=== PATIENT | female | born 1940 | race Caucasian/White ===

== ENCOUNTER 2017-04-02 09:50 | Inpatient (IN) | payer OTHER ==
[2017-04-02] MEDS ORDERED: SOLU-Medrol 125 MG VIAL ONE (10:13)
[2017-04-02] MEDS ORDERED: SOLU-Medrol 125 MG VIAL IVP ONE (10:15)
[2017-04-02] MEDS ORDERED: NS 1000 ML 1,000 ML IV ONE (10:15)
--- NOTE | 2017-04-02 10:21 | DR.GENAD ---
HPI - PCP Primary Care Physician: catrachita - Complaint/Symptoms Chief Complaint Doctors Comments: Family members brought patient to the ED for evaluation secondry to dyspnea. Son reports that when patient came from the [place] she could barely walk and was gasping for air. He states that she usually walks this distance without problems. There was no history of fever. She has lung cancer and is followed by Dr Novoa and cancer specialist in [place]. She is a full code. Chief Complaint:: "has been short of breath for several days now pt has stage three lung cancer and copd" - Source History Provided: Patient, Family Member - Mode of Arrival Mode of Arrival: Wheelchair - Timing Onset of Chief Complaint: 03/25/17 PMH - PMH Past Medical History: Yes Past Medical History: Arthritis, COPD Past Medical History Comment: lung cancer Past Surgical History: Yes Surgical History: Cholecystectomy - Family History History of Family Medical Conditions: Yes Family Medical History: Cancer - Social History Does patient currently use any type of tobacco product: No Have you used tobacco products in the last 12 months: No Type of Tobacco Use: None Does any household member use tobacco: No Alcohol Use: None Do you use any recreational Drugs:: No Lives With: Family Lives Where: Home - infectious screening In the last 2 months have you had wt loss of >10#?: NO Have you had fever, night sweats or hemotysis?: No Have you traveled outside the country in the last 6 months?: No Isolation: Standard ROS - Review of Systems Constitutional: No Symptoms Reported Eyes: No Symptoms Reported ENTM: No Symptoms Reported Respiratoy: Short of Breath Cardiovascular: No Symptoms Reported Gastrointestinal/Abdominal: No Symptoms Reported Genitourinary: No Symptoms Reported Neurological: Weakness Musculoskeletal: Other (generalized pain) Integumentary: No Symptoms Reported Hematologic/Lymphatic: No Symptoms Reported Endocrine: Failure to Thrive Psychiatric: No Symptoms Reported All Other Systems: Reviewed and Negative PE - Vital Signs Vitals: Temperature 98.2 F Pulse Rate 148 Respiratory Rate 18 Blood Pressure [Right Arm] 93/50 Blood Pressure [Left Arm] 128/63 Blood Pressure 131/60 O2 Sat by Pulse Oximetry 72 - General Limitations: No Limitations General Appearance: Lethargic - Head Head Exam: Normal Inspection, Atraumatic - Eyes Eye exam: Normal Appearance, PERRL, EOMI - ENT ENT Exam: Normal Exam External Ear Exam: Normal External Inspection TM/Canal Exam: Bilateral Normal Nose Exam: Normal Nose Exam Mouth Exam: Normal Inspection Throat Exam: Normal Inspection - Neck Neck Exam: Normal Inspection, Full ROM - Chest Chest Inspection: Normal Inspection - Respiratory Respiratory Exam: Respiratory Distress Respiratory Exam: Bilateral Clear to Auscultation, Bilateral Decreased Breath Sounds - Cardiovascular Cardiovascular Exam: Regular Rate - Abdominal Exam Abdominal Exam: Normal Inspection Abdominal Tenderness: negative: RUQ, RLQ, LUQ, LLQ, Epigastrium, Suprapubic, Diffuse, Mild, Moderate, Severe, Other - Extremities Extremities Exam: Normal Inspection - Back Back Exam: Normal Inspection - Neurologic Neurological Exam: Alert, Oriented X3, CN II-XII Intact - Psychiatric Psychiatric Exam: Normal Affect - Skin Skin Exam: Warm, Dry, Intact Course - Treatment Treatment: Case was discussed with compliance aide who stated that patient would not be a candidate for stents. The interventional cupola melter stated that patient needed to be intubated prior to acceptance and would probable not come off ventilotor. He would accept if on ventilator. This was discussed with son and he stated that she had said to him that she did not want to be intubated. I discussed with son the possibility of Hospice and he needed to discussed the idea with his brother. The son statedf that is is single and does not have to time to care for her although he does have a 17 year old daughter but she would not have the time. ROR - Labs Reviewed Result Diagrams: 04/02/17 10:20 04/02/17 10:20 Laboratory: WBC 27.7 X10^3/uL (3.6-10.0) H* 04/02/17 10:20 RBC 3.64 X10^6/uL (3.5-5.4) 04/02/17 10:20 Hgb 9.7 g/dL (12.0-16.0) L 04/02/17 10:20 Hct 31.0 % (36.0-47.0) L 04/02/17 10:20 MCV 85.0 fL (80.0-100.0) 04/02/17 10:20 MCH 26.6 pg (27.0-34.0) L 04/02/17 10:20 MCHC 31.3 g/dL (33.0-35.0) L 04/02/17 10:20 RDW 21.8 % (11.6-16.5) H 04/02/17 10:20 Plt Count 574 X10^3/uL (150.0-450.0) H 04/02/17 10:20 Plt Count Comment Increased (ADEQUATE) A 04/02/17 10:20 MPV 7.7 fL (7.4-11.0) 04/02/17 10:20 Neut % 84.6 % (42.0-75.0) H 04/02/17 10:20 Lymph % 6.0 % (21.0-51.0) L 04/02/17 10:20 [place]yer % 8.8 % (0.0-13.0) 04/02/17 10:20 Eos % 0.1 % (0.9-2.9) L 04/02/17 10:20 Baso % 0.5 % (0.2-1.0) 04/02/17 10:20 Neut # 23.5 x10^3/uL (2.2-4.8) H 04/02/17 10:20 Lymph # 1.7 X10^3/uL (1.3-2.9) 04/02/17 10:20 [place] # 2.4 x10^3/uL (0.3-0.8) H 04/02/17 10:20 Eos # 0.0 x10^3/uL (0.0-0.2) 04/02/17 10:20 Baso # 0.1 X10^3/uL (0.0-0.1) 04/02/17 10:20 Absolute Nucleated RBC 0.0 /100WBC 04/02/17 10:20 Total Counted 100 04/02/17 10:20 Neutrophils % (Manual) 84 % (39-76) H 04/02/17 10:20 Band Neutrophils % 6 % (0-10) 04/02/17 10:20 Lymphocytes % (Manual) 7 % (13-43) L 04/02/17 10:20 Monocytes % (Manual) 2 % (4-9) L 04/02/17 10:20 Eosinophils % (Manual) 1 % (0-6) 04/02/17 10:20 Smudge Cells Noted 04/02/17 10:20 Plt Morphology Comment Normal (NORMAL) 04/02/17 10:20 RBC Morphology Abnormal (NORMAL) A 04/02/17 10:20 Anisocytosis 1+ A 04/02/17 10:20 Sample Site Lba 04/02/17 11:50 ABG pH 7.410 (7.35-7.45) 04/02/17 11:50 ABG pCO2 39.0 mmHg (35.0-45.0) 04/02/17 11:50 ABG pO2 59.0 mmHg (80.0-100.0) L 04/02/17 11:50 ABG HCO3 24.7 mmol/L (22-26) 04/02/17 11:50 ABG O2 Saturation 90.0 % (90-100) 04/02/17 11:50 ABG Base Excess 0.1 mmol/L (-2.0-2.0) 04/02/17 11:50 [place]ón Test Na 04/02/17 11:50 A-a Gradient 605.0 mmHg 04/02/17 11:50 FiO2 100.000 04/02/17 11:50 Blood Gas Comments Allyson well cs 04/02/17 11:50 Sodium 135 mmol/L (136-145) L 04/02/17 10:20 Corrected Sodium 136 mmol/L (136-145) 04/02/17 10:20 Potassium 4.2 mmol/L (3.5-5.1) 04/02/17 10:20 Chloride 97 mmol/L (98-107) L 04/02/17 10:20 Carbon Dioxide 21.9 mmol/L (21-32) 04/02/17 10:20 BUN 9 mg/dL (7-18) 04/02/17 10:20 Creatinine 0.78 mg/dL (0.55-1.02) 04/02/17 10:20 Est GFR (MDRD) Af Amer > 60 (>60) 04/02/17 10:20 Est GFR (MDRD) Non-Af > 60 (>60) 04/02/17 10:20 Glucose 150 mg/dL (65-99) H 04/02/17 10:20 Calcium 8.8 mg/dL (8.5-10.1) 04/02/17 10:20 Corrected Calcium 10.6 mg/dL (8.5-10.1) H 04/02/17 10:20 Total Bilirubin 0.40 mg/dL (0.2-1.0) 04/02/17 10:20 AST 23 Units/L (15-37) 04/02/17 10:20 ALT 7 Units/L (12-78) L 04/02/17 10:20 Alkaline Phosphatase 153 Units/L (46-116) H 04/02/17 10:20 Creatine Kinase 43 Units/L (26-192) 04/02/17 10:20 CK-MB (CK-2) 2.7 ng/mL (0-4.0) 04/02/17 10:20 CK/CKMB % Calc 6.3 % (<4) 04/02/17 10:20 Troponin I 1.35 ng/mL (0-1.5) 04/02/17 10:20 Total Protein 7.1 g/dL (6.4-8.2) 04/02/17 10:20 Albumin 1.7 g/dL (3.4-5.0) L 04/02/17 10:20 Globulin 5.4 g/dL (2.5-4.5) H 04/02/17 10:20 Albumin/Globulin Ratio 0.3 Ratio (1.1-2.1) L 04/02/17 10:20 Specimen Type Catherized urine 04/02/17 10:36 Urine Color Yellow (YELLOW) 04/02/17 10:36 Urine Appearance Clear (CLEAR) 04/02/17 10:36 Urine pH 7.0 (5.0 - 8.0) 04/02/17 10:36 Ur Specific [place] 1.010 (1.000-1.030) 04/02/17 10:36 Urine Protein 2+ (NEGATIVE) 04/02/17 10:36 Urine Glucose (UA) Negative (NEGATIVE) 04/02/17 10:36 Urine Ketones Negative (NEGATIVE) 04/02/17 10:36 Urine Occult Blood 2+ (NEGATIVE) 04/02/17 10:36 Urine Nitrite Negative (NEGATIVE) 04/02/17 10:36 Urine Bilirubin Negative (NEGATIVE) 04/02/17 10:36 Urine Urobilinogen 1+ (NORMAL) 04/02/17 10:36 Ur Leukocyte Esterase 1+ (NEGATIVE) 04/02/17 10:36 Urine RBC 0-3 /HPF (NEGATIVE) 04/02/17 10:36 Urine WBC 0-3 /HPF (NEGATIVE) 04/02/17 10:36 Ur Squamous Epith Cells Few /HPF (NEGATIVE) 04/02/17 10:36 Urine Bacteria Trace /HPF (NEGATIVE) 04/02/17 10:36 Ur Culture Indicated? No/not indicated 04/02/17 10:36 - XRAY XRAY Interpreted by: Self (Lung: opacification of lung lung) - Diagnosis Discharge Problem: Acute respiratory distress Lung malignancy Qualifiers: Laterality: left Lung location: overlapping sites Qualified Code(s): C34.82 - Malignant neoplasm of overlapping sites of left bronchus and lung - Discharge Plan Condition: Stable - Follow ups/Referrals Follow ups/Referrals: Ian Novoa [Primary Care Provider] - 3 days - Instructions
[2017-04-02 10:28] LABS: BASOPHILS # (AUTO) 0.1 X10^3/uL (0.0-0.1); BASOPHILS % (AUTO) 0.5 % (0.2-1.0); EOSINOPHILS % (AUTO) 0.1 % (0.9-2.9); HEMOGLOBIN 9.7 g/dL (12.0-16.0); LYMPHOCYTES # (AUTO) 1.7 X10^3/uL (1.3-2.9); MEAN CORPUSCULAR HEMOGLOBIN 26.6 pg (27.0-34.0); MEAN CORPUSCULAR HGB CONC 31.3 g/dL (33.0-35.0); MEAN PLATELET VOLUME 7.7 fL (7.4-11.0); MONOCYTES # (AUTO) 2.4 x10^3/uL (0.3-0.8); MONOCYTES % (AUTO) 8.8 % (0.0-13.0); NEUTROPHILS # (AUTO) 23.5 x10^3/uL (2.2-4.8); NEUTROPHILS % (AUTO) 84.6 % (42.0-75.0); PLATELET COUNT 574 X10^3/uL (150.0-450.0); RED BLOOD COUNT 3.64 X10^6/uL (3.5-5.4); RED CELL DISTRIBUTION WIDTH 21.8 % (11.6-16.5)
[2017-04-02 10:30] LABS: ABG BASE EXCESS -2.2 mmol/L (-2.0-2.0); ABG HCO3 23.2 mmol/L (22-26)
[2017-04-02] MEDS ORDERED: DUONEB 0.5 MG/3 MG NEB SCH (10:30)
[2017-04-02 10:31] LABS: ABG ALLEN TEST POS
[2017-04-02 10:34] LABS: WHITE BLOOD COUNT 27.7 X10^3/uL (3.6-10.0)
[2017-04-02] MEDS ORDERED: PROVENTIL NEB TX 0.083% 2.5MG/ 3ML ONE (10:34)
[2017-04-02] MEDS ORDERED: Atrovent NEB TX 0.02% ONE (10:34)
[2017-04-02] MEDS ORDERED: MORPHINE SULFATE INJ 4 MG IVP ONE (10:43)
[2017-04-02] MEDS ORDERED: MORPHINE SULFATE INJ 4 MG ONE (10:45)
[2017-04-02 10:47] LABS: ANISOCYTOSIS 1+; BAND NEUTROPHILS % 6 % (0-10); PLATELET MORPHOLOGY COMMENT NORMAL (NORMAL)
[2017-04-02 10:48] LABS: BLOOD UREA NITROGEN 9 mg/dL (7-18); CALCIUM 8.8 mg/dL (8.5-10.1); CARBON DIOXIDE 21.9 mmol/L (21-32); CHLORIDE 97 mmol/L (98-107); COR NA(FOR HYPERGLY) 136 mmol/L (136-145); CREATININE 0.78 mg/dL (0.55-1.02); SMUDGE CELLS NOTED; SODIUM 135 mmol/L (136-145); TROPONIN I 1.35 ng/mL (0-1.5); eGFR BLACK RACES > 60 (>60); eGFR NON BLACK RACES > 60 (>60)
[2017-04-02] MEDS ORDERED: PROVENTIL NEB TX 0.083% 2.5MG/ 3ML NEB ONE (10:49)
[2017-04-02] MEDS ORDERED: Atrovent NEB TX 0.02% NEB ONE (10:49)
[2017-04-02 10:54] LABS: ALANINE AMINOTRANSFERASE 7 Units/L (12-78); ALBUMIN 1.7 g/dL (3.4-5.0); ALKALINE PHOSPHATASE 153 Units/L (46-116); ASPARTATE AMINO TRANSFERASE 23 Units/L (15-37); CKMB % 6.3 % (<4); COR CA(FOR HYPOALB) 10.6 mg/dL (8.5-10.1); CREATINE KINASE 43 Units/L (26-192); CREATINE KINASE MB 2.7 ng/mL (0-4.0); TOTAL PROTEIN 7.1 g/dL (6.4-8.2)
[2017-04-02 10:55] LABS: BILIRUBIN,URINE NEGATIVE (NEGATIVE); BLOOD/HEMOGLOBIN,URINE 2+ (NEGATIVE); GLUCOSE, URINE NEGATIVE (NEGATIVE); KETONES,URINE NEGATIVE (NEGATIVE); LEUKOCYTE ESTERASE ,URINE 1+ (NEGATIVE); NITRITES,URINE NEGATIVE (NEGATIVE); PROTEIN,URINE 2+ (NEGATIVE); UROBILINOGEN,URINE 1+ (NORMAL)
[2017-04-02 11:03] LABS: APPEARANCE,URINE CLEAR (CLEAR); COLOR,URINE YELLOW (YELLOW)
[2017-04-02 11:04] LABS: BACTERIA,URINE TRACE /HPF (NEGATIVE); RBC,URINE 0-3 /HPF (NEGATIVE); SQUAMOUS EPITHELIAL CELL,UR FEW /HPF (NEGATIVE)
[2017-04-02 11:56] LABS: ABG BASE EXCESS 0.1 mmol/L (-2.0-2.0); ABG HCO3 24.7 mmol/L (22-26)
[2017-04-02] MEDS ORDERED: NS 1000 ML 1,000 ML IV SCH (16:00)
--- NOTE | 2017-04-02 16:10 | RAD ---
HISTORY: Respiratory distress Study: Chest AP portable Comparison: 07/02/2016 Findings: There is near complete opacification of the left walter thorax within associated shift of the heart med iastinal structures to the left. The left apex is well aerated. The left lower lobe is likely atelect atic. This is likely result of the patient's known lung mass. The right lung is free of acute infiltr ates although there is a focus of subsegmental atelectasis in the right upper lobe. IMPRESSION: Near complete opacification of the left walter thorax which is associated with a shift of the heart med iastinal structures to the left suggesting that the opacification is likely due to left lower lobe at electasis likely related to the patient's known large left lung and hilar mass. Subsegmental atelectasis right upper lobe Reported By:
[2017-04-02] MEDS ORDERED: MORPHINE SULFATE INJ 2 MG INJ IVP PRN (16:37)
[2017-04-02] MEDS ORDERED: MORPHINE SULFATE INJ 4 MG IVP PRN (18:28)
[2017-04-02] MEDS ORDERED: ATIVAN INJ 2 MG VIAL ONE (18:33)
[2017-04-02] MEDS: DURAGESIC 100 mcg/HR PATCH TD SCH (18:37)
[2017-04-02] MEDS: ATIVAN INJ 2 MG VIAL IVP PRN (18:38)
[2017-04-02] MEDS: Atrovent NEB TX 0.02% NEB SCH (18:56)
[2017-04-02] MEDS ORDERED: VALIUM INJ IVP PRN (19:45)
[2017-04-02] MEDS: ALBUMIN HUMAN 25%- 100ML 100 ML IV SCH (20:38)
[2017-04-02] MEDS: CHECK PATCH XX SCH (20:39)
[2017-04-02] MEDS: NS 1000 ML 1,000 ML IV SCH (20:39)
[2017-04-02] MEDS ORDERED: TIOTROPIUM BROMIDE MONOHYDRATE IN SCH (21:00)
[2017-04-03] MEDS: ATIVAN INJ 2 MG VIAL IVP PRN (00:35)
[2017-04-03] MEDS: Atrovent NEB TX 0.02% NEB SCH ×4 (01:17→16:18)
[2017-04-03] MEDS: NS 1000 ML 1,000 ML IV SCH ×4 (03:30→17:05)
[2017-04-03 05:54] LABS: ALANINE AMINOTRANSFERASE 9 Units/L (12-78); ALBUMIN 2.1 g/dL (3.4-5.0); ALKALINE PHOSPHATASE 116 Units/L (46-116); ASPARTATE AMINO TRANSFERASE 22 Units/L (15-37); BLOOD UREA NITROGEN 9 mg/dL (7-18); CALCIUM 8.2 mg/dL (8.5-10.1); CARBON DIOXIDE 23.2 mmol/L (21-32); CHLORIDE 104 mmol/L (98-107); COR CA(FOR HYPOALB) 9.7 mg/dL (8.5-10.1); COR NA(FOR HYPERGLY) 140 mmol/L (136-145); CREATININE 0.46 mg/dL (0.55-1.02); SODIUM 140 mmol/L (136-145); TOTAL PROTEIN 6.4 g/dL (6.4-8.2); eGFR BLACK RACES > 60 (>60); eGFR NON BLACK RACES > 60 (>60)
[2017-04-03 06:05] LABS: BASOPHILS # (AUTO) 0.1 X10^3/uL (0.0-0.1); BASOPHILS % (AUTO) 0.4 % (0.2-1.0); HEMATOCRIT 25.7 % (36.0-47.0); HEMOGLOBIN 8.4 g/dL (12.0-16.0); LYMPHOCYTES # (AUTO) 0.5 X10^3/uL (1.3-2.9); LYMPHOCYTES % (AUTO) 1.9 % (21.0-51.0); MEAN CORPUSCULAR HGB CONC 32.5 g/dL (33.0-35.0); MONOCYTES # (AUTO) 2.5 x10^3/uL (0.3-0.8); MONOCYTES % (AUTO) 9.7 % (0.0-13.0); NEUTROPHILS # (AUTO) 22.4 x10^3/uL (2.2-4.8); PLATELET COUNT 417 X10^3/uL (150.0-450.0); RED CELL DISTRIBUTION WIDTH 21.3 % (11.6-16.5)
[2017-04-03 06:17] LABS: WHITE BLOOD COUNT 25.5 X10^3/uL (3.6-10.0)
[2017-04-03 06:32] LABS: BAND NEUTROPHILS % 3 % (0-10); HYPOCHROMASIA 1+; PLATELET MORPHOLOGY COMMENT NORMAL (NORMAL)
[2017-04-03 06:33] LABS: SMUDGE CELLS NOTED
[2017-04-03 06:34] LABS: ANISOCYTOSIS 1+; OVALOCYTES NOTED
[2017-04-03] MEDS: ALBUMIN HUMAN 25%- 100ML 100 ML IV SCH (09:48)
[2017-04-03 09:52] VITALS: BMI 14.6
[2017-04-03] MEDS: CHECK PATCH XX SCH ×2 (10:08→20:16)
[2017-04-03] MEDS: MEGACE ORAL SUSP 400 MG/10 ML PO SCH (10:09)
[2017-04-04] MEDS: NS 1000 ML 1,000 ML IV SCH ×4 (00:38→21:23)
[2017-04-04] MEDS: Atrovent NEB TX 0.02% NEB SCH ×3 (00:44→16:58)
[2017-04-04 05:30] LABS: BASOPHILS % (AUTO) 0.1 % (0.2-1.0); HEMATOCRIT 23.9 % (36.0-47.0); HEMOGLOBIN 7.7 g/dL (12.0-16.0); LYMPHOCYTES # (AUTO) 0.6 X10^3/uL (1.3-2.9); LYMPHOCYTES % (AUTO) 2.7 % (21.0-51.0); MEAN CORPUSCULAR HEMOGLOBIN 27.1 pg (27.0-34.0); MEAN CORPUSCULAR HGB CONC 32.4 g/dL (33.0-35.0); MEAN CORPUSCULAR VOLUME 83.7 fL (80.0-100.0); MEAN PLATELET VOLUME 8.2 fL (7.4-11.0); MONOCYTES # (AUTO) 2.3 x10^3/uL (0.3-0.8); MONOCYTES % (AUTO) 10.5 % (0.0-13.0); NEUTROPHILS # (AUTO) 18.8 x10^3/uL (2.2-4.8); NEUTROPHILS % (AUTO) 86.7 % (42.0-75.0); PLATELET COUNT 353 X10^3/uL (150.0-450.0); RED BLOOD COUNT 2.86 X10^6/uL (3.5-5.4); RED CELL DISTRIBUTION WIDTH 21.3 % (11.6-16.5)
[2017-04-04 05:37] LABS: ALANINE AMINOTRANSFERASE 8 Units/L (12-78); ALBUMIN 2.1 g/dL (3.4-5.0); ALKALINE PHOSPHATASE 92 Units/L (46-116); ASPARTATE AMINO TRANSFERASE 20 Units/L (15-37); BLOOD UREA NITROGEN 6 mg/dL (7-18); CALCIUM 7.9 mg/dL (8.5-10.1); CARBON DIOXIDE 27.5 mmol/L (21-32); CHLORIDE 106 mmol/L (98-107); COR CA(FOR HYPOALB) 9.4 mg/dL (8.5-10.1); CREATININE 0.46 mg/dL (0.55-1.02); SODIUM 142 mmol/L (136-145); TOTAL PROTEIN 5.8 g/dL (6.4-8.2); eGFR BLACK RACES > 60 (>60); eGFR NON BLACK RACES > 60 (>60)
[2017-04-04 05:39] LABS: WHITE BLOOD COUNT 21.7 X10^3/uL (3.6-10.0)
[2017-04-04 05:43] LABS: ANISOCYTOSIS 1+; HYPOCHROMASIA 1+; OVALOCYTES NOTED; PLATELET MORPHOLOGY COMMENT NORMAL (NORMAL)
[2017-04-04] MEDS ORDERED: K-DUR TAB 20 MEQ PO PRN (05:43)
[2017-04-04] MEDS ORDERED: POTASSIUM CHLORIDE LIQ 20 MEQ UDC PO PRN (05:43)
[2017-04-04] MEDS ORDERED: K-LYTE EFFERVESCENT PO PRN (05:43)
[2017-04-04] MEDS ORDERED: MAGNESIUM SULFATE 1 GM/100 mL PREMIX 1 GM/100 ML BAG IV ONE (06:12)
[2017-04-04] MEDS: ATIVAN INJ 2 MG VIAL IVP PRN ×2 (06:13→21:28)
[2017-04-04] MEDS: K-RIDER 10 MEQ/NS 100 ML 10 MEQ/100 ML BAG IV PRN ×3 (06:16→08:23)
[2017-04-04] MEDS: CHECK PATCH XX SCH ×2 (08:01→21:28)
[2017-04-04] MEDS ORDERED: PHARMACY CONSULT - TPN XX SCH (10:00)
--- NOTE | 2017-04-04 10:29 | DR.H&P ---
H&P - History & Physical for Day of: H&P Date: 04/02/17 - Chief Complaint Chief Complaint: SHORTNESS OF BREATH - Allergies Allergies/Adverse Reactions: Allergies Allergy/AdvReac Type Severity Reaction Status Date / Time codeine Allergy Verified 04/02/17 10:36 - History of Present Illness History of Present Illness: Ms. Eisenberg is a 76 year old patient of ours who presented to the emergency room via personal vehicle with complaints of shortness of breath that has progressively gotten worse over the past several days. Patients son reported that patient has had weakness, decreased appetite , and difficulty walking. He also reports that patient has been gasping for air. Family reports that patient has a current history of lung cancer for which she underwent chemo and radiation in February. Patients son reported that she had a repeat PET scan a week ago. On arrival to the emergency room patient noted to be lethargic with an oxygen saturation of 72% on nasal cannula. Family reports that patient wears oxygen at home. On examination, lungs were noted with wheezing bilaterally to auscultation. Lungs sounds are diminished. Respirations are labored. Abdomen is flat, soft, and non-tender with normal bowel sounds noted in all quadrants. Vital signs on arrival were 98.2, 148, 18, 72% 2L NC, 131/60. A CBC, CMP, urinalysis, and ABG were obtained. Abnormal lab values include the following: WBC 27.7, Hgb 9.7, Hct 31.0, MCH 26.6, MCHC 31.3, RDW 21.8, Plt Count 574, Sodium 135, Chloride 97, Glucose 150, Corrected Calcium 10.6, ALT 7, Alk Phos 153, Albumin 1.7, Globulin 5.4, A/G Ratio 0.3. ABG reported: pO2 42.0, O2 Sat 75.0, Base Excess -2.2. EKG reported sinus thachycardia with HR 153. Chest xray reported: Near complete opacification of the left walter thorax which is associated with a shift of the heart mediastinal structures to the left suggesting that the opacification is likely due to left lower lobe atelectasis likely related to the patients known large left lung and hilar mass. Sub-segmental atelectasis right upper lobe. Patient placed on bi-pap at 14/7. spoke with a edge sawyer at [facility] in [place] regarding possible transfer. Grade Setter reports that patient would not be a candidate for a heart cath. He would accept patient, but patient would need to be intubated prior to transfer. Patient refused intubation. discussed the possibility of hospice with the family. Patients son stated that he would need to discuss with his brother. We admitted patient to the hospital for respiratory distress. We planned to follow up with AM labs and continue to monitor patient. - Past Medical History Past Medical History: Arthritis, COPD Additional Medical History: Vision deficit with corrective lenses, Osteoporosis , Back Pain, Blood Transfusion in 1961 - Past Surgical History Surgical History: Cholecystectomy - Family History Family Medical History: Cancer - Social History Does patient currently use any type of tobacco product: No Have you used tobacco products in the last 12 months: No Type of Tobacco Use: Cigarettes How many years tobacco product used: 50 Does any household member use tobacco: No Alcohol Use: None Drug Use: Prescription Drugs - Medications Home Medications: Megestrol Acetate 400 mg PO DAILY 04/02/17 [History Confirmed 04/02/17] - Review of Systems Constitutional: See HPI, Weakness Eyes: No Symptoms Reported ENT: No Symptoms Reported Respiratory: See HPI, Shortness of Breath, SOB with Excertion, Wheezing Cardiovascular: Chest Pain Gastrointestinal: No Symptoms Reported Genitourinary: No Symptoms Reported Musculoskeletal: No Symptoms Reported Skin: No Symptoms Reported Neurological: Weakness - Physical Exam Vital Signs: Temperature 98.3 F Pulse Rate [Right Brachial] 62 Pulse Rate [Left Brachial] 108 Pulse Rate 113 Respiratory Rate 20 Blood Pressure [Right Arm] 146/64 Blood Pressure [Left Arm] 118/63 Blood Pressure 131/60 O2 Sat by Pulse Oximetry 96 Oriented: Normal Eyes: Normal Ear: Normal Nose: Normal Throat: Normal Respiratory: Diminished Throughout, Wheezes Throughout Cardiovascular: Tachycardia : Normal Auscultation: Bowel Sounds: Normal Palpation: Normal Tenderness: Normal Skin: Bruising (SCATTERED ) Musculoskeletal: Instability Psychiatric: Normal Mood Description: Calm Affect: Normal Speech Pattern: Appropriate - Assessment/Plan (1) Acute respiratory distress Status: Acute Plan: BIPAP, ATROVENT NEB TX, ATIVAN 0.5MG IV Q3-4H PRN, MORPHINE 4MG IV Q3H PRN , CONTINUE TO MONITOR (2) Bronchogenic cancer of left lung Status: Acute Plan: FENTANYL 100MCG PATCH FOR PAIN, CONTINUE TO MONITOR
[2017-04-04] MEDS ORDERED: DRUG FILTER EXTENSION SET ONE (12:13)
[2017-04-04] MEDS: FORTAZ or TAZICEF INJ 1 GM in NS 50 ML IV + SPIKE MINIBAG* 50 ML IV SCH ×3 (12:30→21:23)
[2017-04-04] MEDS: TRACE ELEMENTS IV SCH ×5 (12:30)
[2017-04-04] MEDS: LEVAQUIN PREMIX IV 750 MG 750 MG/150 ML BAG IV SCH (12:30)
[2017-04-04] MEDS: CLINIMIX IV SCH ×5 (12:30)
[2017-04-04] MEDS: SOLU-Medrol 40 MG VIAL IVP SCH ×3 (12:30→21:23)
[2017-04-04] MEDS: TPN ELECTROLYTES IV SCH ×5 (12:30)
[2017-04-04] MEDS: ALBUMIN HUMAN 25%- 100ML 100 ML IV SCH (12:30)
[2017-04-04] MEDS: [UNRECOGNIZED DRUG - OTHER] IV SCH ×5 (12:30)
[2017-04-04] MEDS: MEGACE ORAL SUSP 400 MG/10 ML PO SCH ×2 (14:23→15:00)
--- NOTE | 2017-04-04 16:04 | PCM.PROG ---
Progress Note - Progress Note for Day of Date: 04/03/17 - Subjective Subjective: WAS ADMITTED FOR ACUTE RESPIRATORY DISTRESS. TODAY, SHE IS LYING IN BED WITH EYES CLOSED. PATIENT DOES NOT AWAKEN OR RESPOND TO VERBAL STIMULI. PATIENT'S FAMILY STATES THAT SHE HAS NOT RESPONDED TO THEM SINCE LAST NIGHT. ON EXAMINATION, LUNGS ARE NOTED WITH WHEEZING BILATERALLY TO AUSCULTATION. ABDOMEN IS FLAT, SOFT, AND NON TENDER. NORMAL BOWEL SOUNDS ARE NOTED IN ALL QUADRANTS. PATIENT IS ON A VENTI MASK AT THIS TIME AT 50%. FAMILY REPORTS THAT SHE WAS UNABLE TO TOLERATE THE BIPAP THROUGHOUT THE NIGHT. HER VITAL SIGNS THIS MORNING ARE 97.6-108-24-96%-108/63. A CBC AND CMP WERE OBTAINED. ABNORMAL LAB VALUES INCLUDE THE FOLLOWING: WBC 25.5, RBC 3.10, HGB 8.4 , HCT 25.7, CREATININE 0.46, GLUCOSE 111, CALCIUM 8.2, ALT 9, ALBUMIN 2.1. WE DISCUSSED WITH FAMILY THEIR WISHES FOR PATIENT'S COURSE OF TREATMENT. FAMILY REPORTS THAT THEY CONTINUE TO DISCUSS HOSPICE BEING AN OPTION. THEY DO NOT WISH TO BE AGGRESSIVE WITH TREATMENT AT THIS TIME. TODAY, WE WILL ADD DURAGESIC 25MCG PATCH. OTHERWISE, WE WILL CONTINUE WITH CURRENT PLAN OF CARE. WE WILL FOLLOW UP WITH AM LABS AND CONTINUE TO MONITOR PATIENT. - Past Medical Family Social History Past Med/Fam/Surg Hx: No changes since H&P Allergies: Allergies codeine Allergy (Verified 04/02/17 10:36) - Review of Systems ROS: No change since H&P - Vital Signs and I&O's Vital Signs: Temperature 98.3 F Pulse Rate [Right Brachial] 62 Pulse Rate [Left Brachial] 108 Pulse Rate 113 Respiratory Rate 20 Blood Pressure [Right Arm] 146/64 Blood Pressure [Left Arm] 118/63 Blood Pressure 131/60 O2 Sat by Pulse Oximetry 96 Intake and Output: Intake & Output 04/02/17 04/03/17 04/04/17 04/05/17 11:59 11:59 11:59 11:59 Intake Total 1347 2770 Output Total 100 1050 Balance 1247 1720 - Physical Exam Oriented: Unable to test Eyes: Normal Ear: Normal Nose: Normal Throat: Normal Respiratory: Generalized, Wheezes Cardiovascular: Tachycardia : Normal Auscultation: Bowel Sounds: Normal Palpation: Normal Tenderness: Normal Skin: Bruising (SCATTERED ) Musculoskeletal: Instability Psychiatric: Normal Mood Description: Calm Affect: Normal Speech Pattern: Appropriate - Laboratory and Diagnostics Result Diagrams: 04/04/17 03:30 04/04/17 03:30 Labs: Laboratory WBC 21.7 X10^3/uL (3.6-10.0) H* 04/04/17 03:30 RBC 2.86 X10^6/uL (3.5-5.4) L 04/04/17 03:30 Hgb 7.7 g/dL (12.0-16.0) L 04/04/17 03:30 Hct 23.9 % (36.0-47.0) L 04/04/17 03:30 MCV 83.7 fL (80.0-100.0) 04/04/17 03:30 MCH 27.1 pg (27.0-34.0) 04/04/17 03:30 MCHC 32.4 g/dL (33.0-35.0) L 04/04/17 03:30 RDW 21.3 % (11.6-16.5) H 04/04/17 03:30 Plt Count 353 X10^3/uL (150.0-450.0) 04/04/17 03:30 Plt Count Comment Adequate (ADEQUATE) 04/04/17 03:30 MPV 8.2 fL (7.4-11.0) 04/04/17 03:30 Neut % 86.7 % (42.0-75.0) H 04/04/17 03:30 Lymph % 2.7 % (21.0-51.0) L 04/04/17 03:30 [place] % 10.5 % (0.0-13.0) 04/04/17 03:30 Eos % 0.0 % (0.9-2.9) L 04/04/17 03:30 Baso % 0.1 % (0.2-1.0) L 04/04/17 03:30 Neut # 18.8 x10^3/uL (2.2-4.8) H 04/04/17 03:30 Lymph # 0.6 X10^3/uL (1.3-2.9) L 04/04/17 03:30 [place] # 2.3 x10^3/uL (0.3-0.8) H 04/04/17 03:30 Eos # 0.0 x10^3/uL (0.0-0.2) 04/04/17 03:30 Baso # 0.0 X10^3/uL (0.0-0.1) 04/04/17 03:30 Absolute Nucleated RBC 0.0 /100WBC 04/04/17 03:30 Total Counted 100 04/03/17 05:30 Neutrophils % (Manual) 90 % (39-76) H 04/03/17 05:30 Band Neutrophils % 3 % (0-10) 04/03/17 05:30 Lymphocytes % (Manual) 1 % (13-43) L 04/03/17 05:30 Monocytes % (Manual) 6 % (4-9) 04/03/17 05:30 Eosinophils % (Manual) 1 % (0-6) 04/02/17 10:20 Smudge Cells Noted 04/03/17 05:30 Plt Morphology Comment Normal (NORMAL) 04/04/17 03:30 RBC Morphology Abnormal (NORMAL) A 04/04/17 03:30 Hypochromasia 1+ A 04/04/17 03:30 Anisocytosis 1+ A 04/04/17 03:30 Ovalocytes Noted 04/04/17 03:30 Sample Site Lba 04/02/17 11:50 ABG pH 7.410 (7.35-7.45) 04/02/17 11:50 ABG pCO2 39.0 mmHg (35.0-45.0) 04/02/17 11:50 ABG pO2 59.0 mmHg (80.0-100.0) L 04/02/17 11:50 ABG HCO3 24.7 mmol/L (22-26) 04/02/17 11:50 ABG O2 Saturation 90.0 % (90-100) 04/02/17 11:50 ABG Base Excess 0.1 mmol/L (-2.0-2.0) 04/02/17 11:50 [place] Test Na 04/02/17 11:50 A-a Gradient 605.0 mmHg 04/02/17 11:50 FiO2 100.000 04/02/17 11:50 Blood Gas Comments Allyson well cs 04/02/17 11:50 Sodium 142 mmol/L (136-145) 04/04/17 03:30 Corrected Sodium TNP 04/04/17 03:30 Potassium 2.9 mmol/L (3.5-5.1) L* 04/04/17 03:30 Chloride 106 mmol/L (98-107) 04/04/17 03:30 Carbon Dioxide 27.5 mmol/L (21-32) 04/04/17 03:30 BUN 6 mg/dL (7-18) L 04/04/17 03:30 Creatinine 0.46 mg/dL (0.55-1.02) L 04/04/17 03:30 Est GFR (MDRD) Af Amer > 60 (>60) 04/04/17 03:30 Est GFR (MDRD) Non-Af > 60 (>60) 04/04/17 03:30 Glucose 93 mg/dL (65-99) 04/04/17 03:30 Calcium 7.9 mg/dL (8.5-10.1) L 04/04/17 03:30 Corrected Calcium 9.4 mg/dL (8.5-10.1) 04/04/17 03:30 Magnesium 1.6 mg/dL (1.7-2.9) L 04/04/17 03:30 Total Bilirubin 0.40 mg/dL (0.2-1.0) 04/04/17 03:30 AST 20 Units/L (15-37) 04/04/17 03:30 ALT 8 Units/L (12-78) L 04/04/17 03:30 Alkaline Phosphatase 92 Units/L (46-116) 04/04/17 03:30 Creatine Kinase 43 Units/L (26-192) 04/02/17 10:20 CK-MB (CK-2) 2.7 ng/mL (0-4.0) 04/02/17 10:20 CK/CKMB % Calc 6.3 % (<4) 04/02/17 10:20 Troponin I 1.35 ng/mL (0-1.5) 04/02/17 10:20 Total Protein 5.8 g/dL (6.4-8.2) L 04/04/17 03:30 Albumin 2.1 g/dL (3.4-5.0) L 04/04/17 03:30 Globulin 3.7 g/dL (2.5-4.5) 04/04/17 03:30 Albumin/Globulin Ratio 0.6 Ratio (1.1-2.1) L 04/04/17 03:30 Prealbumin 6.5 mg/dL (18-35.7) L 04/04/17 03:30 Specimen Type Catherized urine 04/02/17 10:36 Urine Color Yellow (YELLOW) 04/02/17 10:36 Urine Appearance Clear (CLEAR) 04/02/17 10:36 Urine pH 7.0 (5.0 - 8.0) 04/02/17 10:36 Ur Specific [place] 1.010 (1.000-1.030) 04/02/17 10:36 Urine Protein 2+ (NEGATIVE) 04/02/17 10:36 Urine Glucose (UA) Negative (NEGATIVE) 04/02/17 10:36 Urine Ketones Negative (NEGATIVE) 04/02/17 10:36 Urine Occult Blood 2+ (NEGATIVE) 04/02/17 10:36 Urine Nitrite Negative (NEGATIVE) 04/02/17 10:36 Urine Bilirubin Negative (NEGATIVE) 04/02/17 10:36 Urine Urobilinogen 1+ (NORMAL) 04/02/17 10:36 Ur Leukocyte Esterase 1+ (NEGATIVE) 04/02/17 10:36 Urine RBC 0-3 /HPF (NEGATIVE) 04/02/17 10:36 Urine WBC 0-3 /HPF (NEGATIVE) 04/02/17 10:36 Ur Squamous Epith Cells Few /HPF (NEGATIVE) 04/02/17 10:36 Urine Bacteria Trace /HPF (NEGATIVE) 04/02/17 10:36 Ur Culture Indicated? No/not indicated 04/02/17 10:36 - Plan (1) Acute respiratory distress Status: Acute Plan: BIPAP, ATROVENT NEB TX, ATIVAN 0.5MG IV Q3-4H PRN, MORPHINE 4MG IV Q3H PRN , CONTINUE TO MONITOR (2) Bronchogenic cancer of left lung Status: Chronic Plan: FENTANYL 125MCG PATCH FOR PAIN, CONTINUE TO MONITOR
[2017-04-05] MEDS: Atrovent NEB TX 0.02% NEB SCH ×4 (00:57→17:16)
[2017-04-05] MEDS: TRACE ELEMENTS IV SCH ×10 (01:56→14:02)
[2017-04-05] MEDS: CLINIMIX IV SCH ×10 (01:56→14:02)
[2017-04-05] MEDS: [UNRECOGNIZED DRUG - OTHER] IV SCH ×10 (01:56→14:02)
[2017-04-05] MEDS: TPN ELECTROLYTES IV SCH ×10 (01:56→14:02)
[2017-04-05] MEDS: FORTAZ or TAZICEF INJ 1 GM in NS 50 ML IV + SPIKE MINIBAG* 50 ML IV SCH ×3 (05:38→21:00)
[2017-04-05] MEDS: SOLU-Medrol 40 MG VIAL IVP SCH ×3 (05:39→21:00)
[2017-04-05 06:40] LABS: ALANINE AMINOTRANSFERASE 10 Units/L (12-78); ALBUMIN 2.6 g/dL (3.4-5.0); ALKALINE PHOSPHATASE 94 Units/L (46-116); ASPARTATE AMINO TRANSFERASE 19 Units/L (15-37); BLOOD UREA NITROGEN 8 mg/dL (7-18); CALCIUM 8.6 mg/dL (8.5-10.1); CHLORIDE 102 mmol/L (98-107); COR CA(FOR HYPOALB) 9.7 mg/dL (8.5-10.1); COR NA(FOR HYPERGLY) 141 mmol/L (136-145); CREATININE 0.44 mg/dL (0.55-1.02); SODIUM 139 mmol/L (136-145); TOTAL PROTEIN 6.4 g/dL (6.4-8.2); eGFR BLACK RACES > 60 (>60); eGFR NON BLACK RACES > 60 (>60)
[2017-04-05 06:44] LABS: BASOPHILS % (AUTO) 0.2 % (0.2-1.0); HEMOGLOBIN 8.1 g/dL (12.0-16.0); LYMPHOCYTES # (AUTO) 0.5 X10^3/uL (1.3-2.9); LYMPHOCYTES % (AUTO) 3.1 % (21.0-51.0); MEAN CORPUSCULAR HGB CONC 32.5 g/dL (33.0-35.0); MEAN CORPUSCULAR VOLUME 83.3 fL (80.0-100.0); MEAN PLATELET VOLUME 8.5 fL (7.4-11.0); MONOCYTES # (AUTO) 0.4 x10^3/uL (0.3-0.8); MONOCYTES % (AUTO) 2.7 % (0.0-13.0); NEUTROPHILS # (AUTO) 14.6 x10^3/uL (2.2-4.8); PLATELET COUNT 335 X10^3/uL (150.0-450.0); RED CELL DISTRIBUTION WIDTH 21.9 % (11.6-16.5); WHITE BLOOD COUNT 15.5 X10^3/uL (3.6-10.0)
[2017-04-05 07:15] LABS: ANISOCYTOSIS 1+; PLATELET MORPHOLOGY COMMENT NORMAL (NORMAL)
[2017-04-05] MEDS ORDERED: HumuLIN R SUBCUT PRN (08:18)
[2017-04-05] MEDS ORDERED: DEXTROSE 10% 1,000 ML IV PRN (08:18)
[2017-04-05] MEDS: ALBUMIN HUMAN 25%- 100ML 100 ML IV SCH (10:23)
[2017-04-05] MEDS: MEGACE ORAL SUSP 400 MG/10 ML PO SCH (10:26)
[2017-04-05] MEDS: LEVAQUIN PREMIX IV 750 MG 750 MG/150 ML BAG IV SCH (10:26)
[2017-04-05] MEDS: CHECK PATCH XX SCH ×2 (11:52→20:48)
[2017-04-05] MEDS: DURAGESIC 100 mcg/HR PATCH TD SCH (17:01)
[2017-04-05] MEDS: NS 1000 ML 1,000 ML IV SCH (17:09)
[2017-04-05] MEDS: ATIVAN INJ 2 MG VIAL IVP PRN ×2 (20:36→23:50)
[2017-04-06] MEDS: Atrovent NEB TX 0.02% NEB SCH ×3 (00:56→11:18)
[2017-04-06] MEDS: TRACE ELEMENTS IV SCH ×5 (03:57)
[2017-04-06] MEDS: NS 1000 ML 1,000 ML IV SCH (03:57)
[2017-04-06] MEDS: [UNRECOGNIZED DRUG - OTHER] IV SCH ×5 (03:57)
[2017-04-06] MEDS: TPN ELECTROLYTES IV SCH ×5 (03:57)
[2017-04-06] MEDS: CLINIMIX IV SCH ×5 (03:57)
[2017-04-06] MEDS: ATIVAN INJ 2 MG VIAL IVP PRN ×2 (04:36→14:45)
[2017-04-06] MEDS: FORTAZ or TAZICEF INJ 1 GM in NS 50 ML IV + SPIKE MINIBAG* 50 ML IV SCH ×2 (05:10→15:08)
[2017-04-06] MEDS: SOLU-Medrol 40 MG VIAL IVP SCH ×2 (05:11→15:08)
[2017-04-06 05:35] LABS: BASOPHILS % (AUTO) 0.2 % (0.2-1.0); EOSINOPHILS % (AUTO) 0.1 % (0.9-2.9); HEMATOCRIT 22.4 % (36.0-47.0); HEMOGLOBIN 7.3 g/dL (12.0-16.0); LYMPHOCYTES # (AUTO) 0.3 X10^3/uL (1.3-2.9); LYMPHOCYTES % (AUTO) 2.5 % (21.0-51.0); MEAN CORPUSCULAR HEMOGLOBIN 26.9 pg (27.0-34.0); MEAN CORPUSCULAR HGB CONC 32.4 g/dL (33.0-35.0); MEAN PLATELET VOLUME 8.4 fL (7.4-11.0); MONOCYTES # (AUTO) 0.6 x10^3/uL (0.3-0.8); MONOCYTES % (AUTO) 5.5 % (0.0-13.0); NEUTROPHILS # (AUTO) 10.8 x10^3/uL (2.2-4.8); NEUTROPHILS % (AUTO) 91.7 % (42.0-75.0); PLATELET COUNT 319 X10^3/uL (150.0-450.0); RED BLOOD COUNT 2.69 X10^6/uL (3.5-5.4); RED CELL DISTRIBUTION WIDTH 21.9 % (11.6-16.5); WHITE BLOOD COUNT 11.8 X10^3/uL (3.6-10.0)
[2017-04-06 05:51] LABS: ALANINE AMINOTRANSFERASE 13 Units/L (12-78); ALBUMIN 2.3 g/dL (3.4-5.0); ALKALINE PHOSPHATASE 82 Units/L (46-116); ASPARTATE AMINO TRANSFERASE 21 Units/L (15-37); BLOOD UREA NITROGEN 13 mg/dL (7-18); CALCIUM 8.5 mg/dL (8.5-10.1); CHLORIDE 103 mmol/L (98-107); COR CA(FOR HYPOALB) 9.9 mg/dL (8.5-10.1); COR NA(FOR HYPERGLY) 143 mmol/L (136-145); CREATININE 0.47 mg/dL (0.55-1.02); SODIUM 141 mmol/L (136-145); TOTAL PROTEIN 5.9 g/dL (6.4-8.2); eGFR BLACK RACES > 60 (>60); eGFR NON BLACK RACES > 60 (>60)
[2017-04-06 06:54] LABS: HYPOCHROMASIA 1+; PLATELET MORPHOLOGY COMMENT NORMAL (NORMAL)
[2017-04-06] MEDS: CHECK PATCH XX SCH (09:31)
[2017-04-06] MEDS: LEVAQUIN PREMIX IV 750 MG 750 MG/150 ML BAG IV SCH (09:31)
[2017-04-06] MEDS: ALBUMIN HUMAN 25%- 100ML 100 ML IV SCH (09:31)
[2017-04-06] MEDS: MEGACE ORAL SUSP 400 MG/10 ML PO SCH (09:58)
--- NOTE | 2017-04-06 10:49 | PCM.PROG ---
Progress Note - Progress Note for Day of Date: 04/04/17 - Subjective Subjective: WAS ADMITTED FOR ACUTE RESPIRATORY DISTRESS. TODAY, SHE IS ALERT AND ORIENTED, LYING IN BED WITH EYES OPEN ON MORNING ROUNDS. FAMILY REPORTS THAT PATIENT BECAME MORE ALERT YESTERDAY AFTERNOON AND BEGAN ASKING FOR FOOD AND DRINKS. PATIENT IS NOTED WITH COMPLAINTS OF SHORTNESS OF BREATH AND MID /LOWER BACK PAIN. ON EXAMINATION, LUNGS CONTINUE WITH WHEEZING AND RHONCHI BILATERALLY TO AUSCULTATION. ABDOMEN IS FLAT, SOFT, AND NON-TENDER WITH NORMAL BOWEL SOUNDS NOTED IN ALL QUADRANTS. SHE IS NOTED ON A VENTI-MASK THIS MORNING AT 50%. HER VITAL SIGNS THIS MORNING ARE 98.3-62-20-96%-146/64. A CBC, CMP, AND CHEST XRAY WAS OBTAINED THIS MORNING. ABNORMAL LAB RESULTS INCLUDE THE FOLLOWING : WBC 21.7, RBC 2.86, HGB 7.7, HCT 23.9, POTASSIUM 2.9, BUN 6, CREATININE 0.46, CALCIUM 7.9, ALT 8, TOTAL PROTEIN 5.8, ALBUMIN 2.1, MAGNESIUM 1.6. CHEST XRAY REPORTED FINDINGS MOST CONSISTENT WITH EXTENSIVE ATELECTASIS OF THE LEFT LUNG. STAFF REPORTS THAT PATIENTS TEMPERATURE WAS 100.4 AT SOME POINT THROUGHOUT THE NIGHT. FAMILY REPORTS THAT THEY HAVE DECIDED TO PLACE PATIENT UNDER THE CARE OF HOSPICE WHEN THEY ARE DISCHARGED HOME. THEY WISH TO BE PROACTIVE IN THE TREATMENT OF PNEUMONIA SINCE PATIENT HAS BECOME MORE ALERT. WE ARE IN AGREEMENT WITH THE WISHES OF THE FAMILY. TODAY, WE WILL START FORTAZ 1GM IV Q8H, LEVAQUIN 750MG IV DAILY, SOLU-MEDROL 80MG IV Q8H, ALBUMIN 25% DAILY, AND TPN. CASE MANAGEMENT WILL ARRANGE HOSPICE CARE FOR DISCHARGE. WE PLAN TO FOLLOW UP WITH AM LABS AND CONTINUE TO MONITOR PATINET. - Past Medical Family Social History Past Med/Fam/Surg Hx: No changes since H&P Allergies: Allergies codeine Allergy (Verified 04/02/17 10:36) - Review of Systems ROS: No change since H&P - Vital Signs and I&O's Vital Signs: Temperature 97.3 F Pulse Rate [Right Brachial] 104 Pulse Rate [Left Brachial] 134 Pulse Rate 92 Respiratory Rate 22 Blood Pressure [Right Arm] 141/80 Blood Pressure [Left Arm] 121/76 Blood Pressure 131/60 O2 Sat by Pulse Oximetry 100 Intake and Output: Intake & Output 04/03/17 04/04/17 04/05/17 04/06/17 11:59 11:59 11:59 11:59 Intake Total 1347 2770 940 465 Output Total 100 1050 1445 1175 Balance 1247 0052 -409 -277 - Physical Exam Oriented: Normal Eyes: Normal Ear: Normal Nose: Normal Throat: Normal Respiratory: Generalized, Wheezes, Rhonchi Cardiovascular: Tachycardia : Normal Auscultation: Bowel Sounds: Normal Palpation: Normal Tenderness: Normal Skin: Bruising (SCATTERED ) Musculoskeletal: Instability Psychiatric: Normal Mood Description: Calm Affect: Normal Speech Pattern: Clear, Appropriate - Laboratory and Diagnostics Result Diagrams: 04/06/17 03:30 04/06/17 03:30 Labs: Laboratory WBC 11.8 X10^3/uL (3.6-10.0) H 04/06/17 03:30 RBC 2.69 X10^6/uL (3.5-5.4) L 04/06/17 03:30 Hgb 7.3 g/dL (12.0-16.0) L 04/06/17 03:30 Hct 22.4 % (36.0-47.0) L 04/06/17 03:30 MCV 83.0 fL (80.0-100.0) 04/06/17 03:30 MCH 26.9 pg (27.0-34.0) L 04/06/17 03:30 MCHC 32.4 g/dL (33.0-35.0) L 04/06/17 03:30 RDW 21.9 % (11.6-16.5) H 04/06/17 03:30 Plt Count 319 X10^3/uL (150.0-450.0) 04/06/17 03:30 Plt Count Comment Adequate (ADEQUATE) 04/06/17 03:30 MPV 8.4 fL (7.4-11.0) 04/06/17 03:30 Neut % 91.7 % (42.0-75.0) H 04/06/17 03:30 Lymph % 2.5 % (21.0-51.0) L 04/06/17 03:30 [place] % 5.5 % (0.0-13.0) 04/06/17 03:30 Eos % 0.1 % (0.9-2.9) L 04/06/17 03:30 Baso % 0.2 % (0.2-1.0) 04/06/17 03:30 Neut # 10.8 x10^3/uL (2.2-4.8) H 04/06/17 03:30 Lymph # 0.3 X10^3/uL (1.3-2.9) L 04/06/17 03:30 [place] # 0.6 x10^3/uL (0.3-0.8) 04/06/17 03:30 Eos # 0.0 x10^3/uL (0.0-0.2) 04/06/17 03:30 Baso # 0.0 X10^3/uL (0.0-0.1) 04/06/17 03:30 Absolute Nucleated RBC 0.1 /100WBC 04/06/17 03:30 Total Counted 100 04/06/17 03:30 Neutrophils % (Manual) 89 % (39-76) H 04/06/17 03:30 Band Neutrophils % 3 % (0-10) 04/03/17 05:30 Lymphocytes % (Manual) 7 % (13-43) L 04/06/17 03:30 Monocytes % (Manual) 3 % (4-9) L 04/06/17 03:30 Eosinophils % (Manual) 1 % (0-6) 04/06/17 03:30 Smudge Cells Noted 04/03/17 05:30 Plt Morphology Comment Normal (NORMAL) 04/06/17 03:30 RBC Morphology Abnormal (NORMAL) A 04/06/17 03:30 Hypochromasia 1+ A 04/06/17 03:30 Anisocytosis 1+ A 04/05/17 05:15 Ovalocytes Noted 04/04/17 03:30 Sample Site Lba 04/02/17 11:50 ABG pH 7.410 (7.35-7.45) 04/02/17 11:50 ABG pCO2 39.0 mmHg (35.0-45.0) 04/02/17 11:50 ABG pO2 59.0 mmHg (80.0-100.0) L 04/02/17 11:50 ABG HCO3 24.7 mmol/L (22-26) 04/02/17 11:50 ABG O2 Saturation 90.0 % (90-100) 04/02/17 11:50 ABG Base Excess 0.1 mmol/L (-2.0-2.0) 04/02/17 11:50 [place] Test Na 04/02/17 11:50 A-a Gradient 605.0 mmHg 04/02/17 11:50 FiO2 100.000 04/02/17 11:50 Blood Gas Comments Allyson well cs 04/02/17 11:50 Sodium 141 mmol/L (136-145) 04/06/17 03:30 Corrected Sodium 143 mmol/L (136-145) 04/06/17 03:30 Potassium 3.8 mmol/L (3.5-5.1) 04/06/17 03:30 Chloride 103 mmol/L (98-107) 04/06/17 03:30 Carbon Dioxide 33.0 mmol/L (21-32) H 04/06/17 03:30 BUN 13 mg/dL (7-18) 04/06/17 03:30 Creatinine 0.47 mg/dL (0.55-1.02) L 04/06/17 03:30 Est GFR (MDRD) Af Amer > 60 (>60) 04/06/17 03:30 Est GFR (MDRD) Non-Af > 60 (>60) 04/06/17 03:30 Glucose 191 mg/dL (65-99) H 04/06/17 03:30 POC Glucose (mg/dL) 188 mg/dL (65-99) H 04/06/17 04:38 Calcium 8.5 mg/dL (8.5-10.1) 04/06/17 03:30 Corrected Calcium 9.9 mg/dL (8.5-10.1) 04/06/17 03:30 Magnesium 2.0 mg/dL (1.7-2.9) 04/05/17 08:25 Total Bilirubin 0.20 mg/dL (0.2-1.0) 04/06/17 03:30 AST 21 Units/L (15-37) 04/06/17 03:30 ALT 13 Units/L (12-78) 04/06/17 03:30 Alkaline Phosphatase 82 Units/L (46-116) 04/06/17 03:30 Creatine Kinase 43 Units/L (26-192) 04/02/17 10:20 CK-MB (CK-2) 2.7 ng/mL (0-4.0) 04/02/17 10:20 CK/CKMB % Calc 6.3 % (<4) 04/02/17 10:20 Troponin I 1.35 ng/mL (0-1.5) 04/02/17 10:20 Total Protein 5.9 g/dL (6.4-8.2) L 04/06/17 03:30 Albumin 2.3 g/dL (3.4-5.0) L 04/06/17 03:30 Globulin 3.6 g/dL (2.5-4.5) 04/06/17 03:30 Albumin/Globulin Ratio 0.6 Ratio (1.1-2.1) L 04/06/17 03:30 Prealbumin 6.5 mg/dL (18-35.7) L 04/04/17 03:30 Specimen Type Catherized urine 04/02/17 10:36 Urine Color Yellow (YELLOW) 04/02/17 10:36 Urine Appearance Clear (CLEAR) 04/02/17 10:36 Urine pH 7.0 (5.0 - 8.0) 04/02/17 10:36 Ur Specific [place] 1.010 (1.000-1.030) 04/02/17 10:36 Urine Protein 2+ (NEGATIVE) 04/02/17 10:36 Urine Glucose (UA) Negative (NEGATIVE) 04/02/17 10:36 Urine Ketones Negative (NEGATIVE) 04/02/17 10:36 Urine Occult Blood 2+ (NEGATIVE) 04/02/17 10:36 Urine Nitrite Negative (NEGATIVE) 04/02/17 10:36 Urine Bilirubin Negative (NEGATIVE) 04/02/17 10:36 Urine Urobilinogen 1+ (NORMAL) 04/02/17 10:36 Ur Leukocyte Esterase 1+ (NEGATIVE) 04/02/17 10:36 Urine RBC 0-3 /HPF (NEGATIVE) 04/02/17 10:36 Urine WBC 0-3 /HPF (NEGATIVE) 04/02/17 10:36 Ur Squamous Epith Cells Few /HPF (NEGATIVE) 04/02/17 10:36 Urine Bacteria Trace /HPF (NEGATIVE) 04/02/17 10:36 Ur Culture Indicated? 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
--- NOTE | 2017-04-06 11:03 | PCM.PROG ---
Progress Note - Progress Note for Day of Date: 04/05/17 - Subjective Subjective: WAS ADMITTED FOR ACUTE RESPIRATORY DISTRESS. TODAY, SHE IS ALERT AND ORIENTED, LYING IN BED WITH EYES OPEN ON MORNING ROUNDS. PATIENT CONTINUES WITH COMPLAINTS OF SHORTNESS OF BREATH AND MID/LOWER BACK PAIN. ON EXAMINATION, LUNGS CONTINUE WITH WHEEZING AND RHONCHI BILATERALLY TO AUSCULTATION. ABDOMEN IS FLAT, SOFT, AND NON-TENDER WITH NORMAL BOWEL SOUNDS NOTED IN ALL QUADRANTS. SHE IS NOTED ON A NON-REBREATER THIS MORNING. HER VITAL SIGNS THIS MORNING ARE 98.4-113-20-98%-135/76. A CBC, CMP, AND CHEST XRAY WERE OBTAINED THIS MORNING. ABNORMAL LAB RESULTS INCLUDE THE FOLLOWING: WBC 15.5, RBC 3.00, HGB 8.1, HCT 25, CREATININE 0.44, ALT 10, ALBUMIN 2.6. CHEST XRAY REPORTED UNCHANGED ATELECTASIS AND CONSOLIDATION OF THE LEFT LUNG WITH PLEURAL THICKENING. STAFF REPORTS THAT PATIENTS TEMPERATURE WAS 100.4 AT SOME POINT THROUGHOUT THE NIGHT. CASE MANAGEMENT IS ARRANGING FOR HOSPICE AFTER PATIENT IS DISCHARGED FROM HOSPITAL. TODAY, WE WILL INCREASE DURAGESIC TO 150MCG DUE TO CONSTANT BACK PAIN. WE PLAN TO FOLLOW UP WITH AM LABS AND CONTINUE TO MONITOR PATIENT. - Past Medical Family Social History Past Med/Fam/Surg Hx: No changes since H&P Allergies: Allergies codeine Allergy (Verified 04/02/17 10:36) - Review of Systems ROS: No change since H&P - Vital Signs and I&O's Vital Signs: Temperature 97.3 F Pulse Rate [Right Brachial] 104 Pulse Rate [Left Brachial] 134 Pulse Rate 92 Respiratory Rate 22 Blood Pressure [Right Arm] 141/80 Blood Pressure [Left Arm] 121/76 Blood Pressure 131/60 O2 Sat by Pulse Oximetry 100 Intake and Output: Intake & Output 04/03/17 04/04/17 04/05/17 04/06/17 11:59 11:59 11:59 11:59 Intake Total 1347 2770 940 465 Output Total 100 1050 1445 1175 Balance 1247 4395 -536 -066 - Physical Exam Oriented: Normal Eyes: Normal Ear: Normal Nose: Normal Throat: Normal Respiratory: Generalized, Wheezes, Rhonchi Cardiovascular: Tachycardia : Normal Auscultation: Bowel Sounds: Normal Palpation: Normal Tenderness: Normal Skin: Bruising (SCATTERED ) Musculoskeletal: Instability Psychiatric: Normal Mood Description: Calm Affect: Normal Speech Pattern: Clear, Appropriate - Laboratory and Diagnostics Result Diagrams: 04/06/17 03:30 04/06/17 03:30 Labs: Laboratory WBC 11.8 X10^3/uL (3.6-10.0) H 04/06/17 03:30 RBC 2.69 X10^6/uL (3.5-5.4) L 04/06/17 03:30 Hgb 7.3 g/dL (12.0-16.0) L 04/06/17 03:30 Hct 22.4 % (36.0-47.0) L 04/06/17 03:30 MCV 83.0 fL (80.0-100.0) 04/06/17 03:30 MCH 26.9 pg (27.0-34.0) L 04/06/17 03:30 MCHC 32.4 g/dL (33.0-35.0) L 04/06/17 03:30 RDW 21.9 % (11.6-16.5) H 04/06/17 03:30 Plt Count 319 X10^3/uL (150.0-450.0) 04/06/17 03:30 Plt Count Comment Adequate (ADEQUATE) 04/06/17 03:30 MPV 8.4 fL (7.4-11.0) 04/06/17 03:30 Neut % 91.7 % (42.0-75.0) H 04/06/17 03:30 Lymph % 2.5 % (21.0-51.0) L 04/06/17 03:30 [place] % 5.5 % (0.0-13.0) 04/06/17 03:30 Eos % 0.1 % (0.9-2.9) L 04/06/17 03:30 Baso % 0.2 % (0.2-1.0) 04/06/17 03:30 Neut # 10.8 x10^3/uL (2.2-4.8) H 04/06/17 03:30 Lymph # 0.3 X10^3/uL (1.3-2.9) L 04/06/17 03:30 [place] # 0.6 x10^3/uL (0.3-0.8) 04/06/17 03:30 Eos # 0.0 x10^3/uL (0.0-0.2) 04/06/17 03:30 Baso # 0.0 X10^3/uL (0.0-0.1) 04/06/17 03:30 Absolute Nucleated RBC 0.1 /100WBC 04/06/17 03:30 Total Counted 100 04/06/17 03:30 Neutrophils % (Manual) 89 % (39-76) H 04/06/17 03:30 Band Neutrophils % 3 % (0-10) 04/03/17 05:30 Lymphocytes % (Manual) 7 % (13-43) L 04/06/17 03:30 Monocytes % (Manual) 3 % (4-9) L 04/06/17 03:30 Eosinophils % (Manual) 1 % (0-6) 04/06/17 03:30 Smudge Cells Noted 04/03/17 05:30 Plt Morphology Comment Normal (NORMAL) 04/06/17 03:30 RBC Morphology Abnormal (NORMAL) A 04/06/17 03:30 Hypochromasia 1+ A 04/06/17 03:30 Anisocytosis 1+ A 04/05/17 05:15 Ovalocytes Noted 04/04/17 03:30 Sample Site Lba 04/02/17 11:50 ABG pH 7.410 (7.35-7.45) 04/02/17 11:50 ABG pCO2 39.0 mmHg (35.0-45.0) 04/02/17 11:50 ABG pO2 59.0 mmHg (80.0-100.0) L 04/02/17 11:50 ABG HCO3 24.7 mmol/L (22-26) 04/02/17 11:50 ABG O2 Saturation 90.0 % (90-100) 04/02/17 11:50 ABG Base Excess 0.1 mmol/L (-2.0-2.0) 04/02/17 11:50 [place] Test Na 04/02/17 11:50 A-a Gradient 605.0 mmHg 04/02/17 11:50 FiO2 100.000 04/02/17 11:50 Blood Gas Comments Allyson well cs 04/02/17 11:50 Sodium 141 mmol/L (136-145) 04/06/17 03:30 Corrected Sodium 143 mmol/L (136-145) 04/06/17 03:30 Potassium 3.8 mmol/L (3.5-5.1) 04/06/17 03:30 Chloride 103 mmol/L (98-107) 04/06/17 03:30 Carbon Dioxide 33.0 mmol/L (21-32) H 04/06/17 03:30 BUN 13 mg/dL (7-18) 04/06/17 03:30 Creatinine 0.47 mg/dL (0.55-1.02) L 04/06/17 03:30 Est GFR (MDRD) Af Amer > 60 (>60) 04/06/17 03:30 Est GFR (MDRD) Non-Af > 60 (>60) 04/06/17 03:30 Glucose 191 mg/dL (65-99) H 04/06/17 03:30 POC Glucose (mg/dL) 188 mg/dL (65-99) H 04/06/17 04:38 Calcium 8.5 mg/dL (8.5-10.1) 04/06/17 03:30 Corrected Calcium 9.9 mg/dL (8.5-10.1) 04/06/17 03:30 Magnesium 2.0 mg/dL (1.7-2.9) 04/05/17 08:25 Total Bilirubin 0.20 mg/dL (0.2-1.0) 04/06/17 03:30 AST 21 Units/L (15-37) 04/06/17 03:30 ALT 13 Units/L (12-78) 04/06/17 03:30 Alkaline Phosphatase 82 Units/L (46-116) 04/06/17 03:30 Creatine Kinase 43 Units/L (26-192) 04/02/17 10:20 CK-MB (CK-2) 2.7 ng/mL (0-4.0) 04/02/17 10:20 CK/CKMB % Calc 6.3 % (<4) 04/02/17 10:20 Troponin I 1.35 ng/mL (0-1.5) 04/02/17 10:20 Total Protein 5.9 g/dL (6.4-8.2) L 04/06/17 03:30 Albumin 2.3 g/dL (3.4-5.0) L 04/06/17 03:30 Globulin 3.6 g/dL (2.5-4.5) 04/06/17 03:30 Albumin/Globulin Ratio 0.6 Ratio (1.1-2.1) L 04/06/17 03:30 Prealbumin 6.5 mg/dL (18-35.7) L 04/04/17 03:30 Specimen Type Catherized urine 04/02/17 10:36 Urine Color Yellow (YELLOW) 04/02/17 10:36 Urine Appearance Clear (CLEAR) 04/02/17 10:36 Urine pH 7.0 (5.0 - 8.0) 04/02/17 10:36 Ur Specific [place] 1.010 (1.000-1.030) 04/02/17 10:36 Urine Protein 2+ (NEGATIVE) 04/02/17 10:36 Urine Glucose (UA) Negative (NEGATIVE) 04/02/17 10:36 Urine Ketones Negative (NEGATIVE) 04/02/17 10:36 Urine Occult Blood 2+ (NEGATIVE) 04/02/17 10:36 Urine Nitrite Negative (NEGATIVE) 04/02/17 10:36 Urine Bilirubin Negative (NEGATIVE) 04/02/17 10:36 Urine Urobilinogen 1+ (NORMAL) 04/02/17 10:36 Ur Leukocyte Esterase 1+ (NEGATIVE) 04/02/17 10:36 Urine RBC 0-3 /HPF (NEGATIVE) 04/02/17 10:36 Urine WBC 0-3 /HPF (NEGATIVE) 04/02/17 10:36 Ur Squamous Epith Cells Few /HPF (NEGATIVE) 04/02/17 10:36 Urine Bacteria Trace /HPF (NEGATIVE) 04/02/17 10:36 Ur Culture Indicated? No/not indicated 04/02/17 10:36 - Plan (1) Acute respiratory distress Status: Acute Plan: BIPAP, ATROVENT NEB TX, ATIVAN 0.5MG IV Q3-4H PRN, MORPHINE 4MG IV Q3H PRN , CONTINUE TO MONITOR (2) Bronchogenic cancer of left lung Status: Chronic Plan: FENTANYL 150MCG PATCH FOR PAIN, CONTINUE TO MONITOR (3) Atelectasis of left lung Status: Acute Plan: LEVAQUIN 750MG DAILY, FORTAZ 1GM IV DAILY, SOLU-MEDROL 80MG IV Q8H, ATROVENT NEB TX, CONTINUE TO MONITOR (4) Hypoalbuminemia Status: Acute Plan: ALBUMIN 25% IV DAILY, TPN, CONTINUE TO MONITOR (5) Hypoproteinemia Status: Acute Plan: ALBUMIN 25% IV DAILY, TPN, CONTINUE TO MONITOR
[2017-04-06 17:37] VITALS: BP 134/73
== END 2017-04-06 16:55 | disposition hospice, home (50) | DRG 204 ==
LOC: ER 10:16 → MED/SURG 14:58
PROVIDERS: ADMIT Internal Medicine; ATTEND Internal Medicine
DX: R06.03 Acute respiratory distress (principal); C34.82 Malignant neoplasm of overlapping sites of left bronchus and lung; R26.89 Other abnormalities of gait and mobility; M54.5 Low back pain; J98.11 Atelectasis; E88.09 Other disorders of plasma-protein metabolism, not elsewhere classified; E77.8 Other disorders of glycoprotein metabolism; Z66 Do not resuscitate
CPT/HCPCS: 36415; 36600; 71010; 80053; 81001; 82550; 82553; 82803; 83735; 84134; 84484; 85025; 93005; 94640; 94660; 94760; 96365; 96374; 96375; 99284; A4216; A4222; A4618; A7030; B4189; P9047; J0713; J1956; J2060; J2270; J2920; J2930; J3360; J3480; J7613; J7644